=== PATIENT | female | born 1945 | race Caucasian/White ===

== ENCOUNTER 2024-06-29 10:00 | Emergency (ER) | payer MEDICARE, OTHER, SELFPAY ==
[2024-06-29 10:05] VITALS: BP 138/77; PULSE 76; RESP 13; TEMP 36.3; O2SAT 98
--- NOTE | 2024-06-29 10:15 | DI.CT_ITS ---
Exam(s) CT HEAD CERVICAL SPINE WO EXAM: CT HEAD CERVICAL SPINE WO CLINICAL HISTORY: Fall, R. sided head strike. TECHNIQUE: Imaging Protocol: Axial computed tomography images with coronal and sagittal reformatted images were created and reviewed COMPARISON: No exams were available for comparison FINDINGS: BRAIN: There are no skull fractures nor fluid in the visualized paranasal sinuses. There is no evidence of intracranial hemorrhage, mass effect, or shift of midline structures. There are no extra-axial fluid collections. The ventricles are not enlarged or shifted and there is no blo od within the ventricular system nor within the basal cisterns. CERVICAL SPINE: There is no evidence of acute fracture nor listhesis. No significant prevertebral soft tissue swelli ng. There is developmental fusion of both anterior and posterior osseous elements of C6,C7, and T1 verteb ral bodies. Also some fusion of partially visualized upper thoracic vertebrae. There is advanced disc space narrowing at the C 5-6 level and bilateral Luschka joint osteophytes at this level. There is also disc space narrowing at C3-4 level. There is some facet arthropathy. No facet malalignment evident. There is no significant facet joint malalignment. No significant osseous lesions evident. IMPRESSION: No acute intracranial findings on this noninfused CT scan of the brain. No evidence of cervical spine fracture, malalignment, nor acute compromise of the cervical spinal can al. 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 There is advanced disc space n arrowing of C5-6 level which is 1 level above the fusion. There is facet arthropathy but without андрей dence of facet joint malalignment. RADIATION DOSE DELIVERED: Total DLP DATA REPOSITORY: All CT scans at this facility are submitted to the National Radiology Data Registry (NRDR) Dose Index Registry (DIR) with the [employer] ([employer]). RADIATION OPTIMIZATION: All CT scans at this facility use at least one of these dose optimization te chniques: automated exposure control; mA and/or kV adjustment per patient size (includes targeted exa ms where dose is matched to clinical indication); or iterative reconstruction.
--- NOTE | 2024-06-29 10:26 | ED.GENADUL_ITS ---
Discharge Plan Disposition Patient Disposition: Home Condition: Stable Discharge Details Clinical Impression: Fracture of olecranon process, right, closed, Laceration of scalp Primary Care Provider: Unknown,Unknown ED Provider: Janelle Galicia Home Meds and New Rx's Prescriptions: No Action levetiracetam [Keppra] 500 mg tablet 500 mg PO BID metformin 1,000 mg tablet 1,000 mg PO BID venlafaxine [Effexor XR] 75 mg capsule,extended release 24hr 75 mg PO DAILY amlodipine 10 mg tablet 10 mg PO DAILY pravastatin 40 mg tablet 40 mg PO DAILY hydrochlorothiazide 25 mg tablet 25 mg PO DAILY lisinopril 20 mg tablet 20 mg PO DAILY omega 1-any-wwe-fish oil [Fish Oil] 1,200 (144-216) mg capsule 2 cap PO DAILY aspirin 81 mg capsule 81 mg PO DAILY omeprazole 10 mg capsule,delayed release(DR/EC) 20 mg PO DAILY mecobalamin (vitamin B12) 500 mcg tablet,chewable 500 mcg PO DAILY ml-zl-fldh-FA-Ca carb-vit K [Women's Multivitamin] 1 tab PO DAILY Calcium + D3 2 tab PO DAILY ibuprofen [Advil] 200 mg tablet 200 mg PO ONCE PRN Discharge Instructions Instructions: Laceration Repair With [facility], Elbow Fracture, Adult ED Additional Instructions: You were seen in the emergency department today after a fall. In our department a full physical examination performed, had 2 negro placed in a laceration on your scalp which need to be removed in 10 days. You also were found to have a chip fracture/avulsion fracture of your right elbow, which was wrapped in an Wing wrap and placed in a sling. Please take it easy with this arm, it is okay for you to use your hand and your wrist but do not excessively bend your elbow. You need to follow-up with orthopedics for reevaluation. Your negro can be removed at the emergency department or by your primary care provider. Please use Tylenol as needed for management of pain and thank you for allowing us to be part of your care. Referrals: Toribio Henry MD [ [facility] STAFF PHYSICIAN] - 1 week HPI General Mode of arrival: ambulatory . Date/Time Provider Initiated Documentation: 06/29/24 10:03 . Limitations to Documentation: no limitations . Information obtained by: patient and old records reviewed . HPI Narrative: HPI: This is a 78-year-old female patient without significant past medical history who is presenting for evaluation after a fall. The patient was walking, states that she stepped on some snow but there was ice underneath and she slipped and fell. She landed, striking her right side of her head against the bumper of her car, as well as her right elbow on the ground. She did not lose consciousness, and this event was not preceded by any dizziness, chest pain, or loss of consciousness. She was able to get up and ambulate after this event, presented to urgent care for evaluation and they recommended being seen here in the emergency department given the potential need for imaging. The patient reports that she noticed some bleeding from the side of her head, does not take anticoagulant medications. She states that her right elbow is slightly painful over the olecranon, though she is able to bend and extend her elbow. She did not sustain any additional injuries, and specifically denies neck or back pain, hip pain, and other injuries to the right shoulder, wrist, hand. Exam: Gen: Awake and alert, in no apparent distress HEENT: Non-icteric sclera, pupils equal and reactive bilaterally. The patient has a 1 cm laceration, well-approximated to the right temporal area with some surrounding tenderness. Neck: Supple, no midline spinal tenderness or step-offs Lungs: No apparent respiratory distress, normal respiratory effort. CV: Appears well perfused, strong distal pulses Abdomen: Non-distended, soft, nontender MSK: Moves 4 extremities without apparent limitation in ROM. Tenderness to pa lpation over the right olecranon process, no limitation in range of motion though extremes of flexion do reproduce pain. She has no tenderness, deformity, or other external signs of trauma with evaluation of her right clavicle, upper arm, wrist, or hand, and the remainder of her extremities are atraumatic. She has no T or L-spine tenderness, pelvis stable to AP compression. Skin: Visualized skin without rashes, cyanosis. Neuro: Normal Gait, no obvious focal deficits or facial asymmetry. Speaks in full, clear sentences. Psych: Appropriate for situation. MDM: This is a 78-year-old female patient presenting for evaluation after a fall. Reassuringly, this appears based on history to have been a mechanical fall, without preceding medical abnormalities such as syncope, orthostasis, seizure activity, stroke, or arrhythmia. My differentials include but are not limited to intracranial hemorrhage, skull fracture, contusion, laceration, fracture and dislocation of the affected right elbow, no evidence on my physical examination for neurovascular injury and she is reassuringly neurologically intact. We will perform wound care to better evaluate that laceration, and obtain a Noncon CT head and C-spine, as well as an x-ray of the affected right elbow. ED Course: CT head and neck without evidence of intracranial hemorrhage, skull fracture, or spinal fracture. The patient's scalp laceration was thoroughly washed out and was repaired with negro as noted below. The x-ray of the patient's elbow was independently interpreted by myself, and does show an avulsion or chip fracture of the olecranon process. The patient on reevaluation does have full preserved strength, symmetrical bilaterally, with elbow extension making triceps rupture less likely. I did discuss this patient's case with orthopedics, who recommend Wing wrap and sling, as well as follow-up in their clinic for reevaluation. She is right-hand dominant and we discussed use of her arm and wrist well avoiding excessive use of her elbow. I provided her with a dose of Tylenol for symptomatic management of pain. At this time, the patient has had a full medical evaluation and is safe for discharge to home. They are hemodynamically stable, ambulatory, and tolerating PO. They are understanding of the follow-up plan and return precautions. They left our facility without incident. Janelle Galicia MD Related Data Home Medications ?Medication ?Instructions ?Recorded ?Confirmed Calcium + D3 2 tab PO DAILY 06/29/24 06/29/24 amlodipine 10 mg tablet 10 mg PO DAILY 06/29/24 06/29/24 aspirin 81 mg capsule 81 mg PO DAILY 06/29/24 06/29/24 hydrochlorothiazide 25 mg tablet 25 mg PO DAILY 06/29/24 06/29/24 ibuprofen 200 mg tablet (Advil) 200 mg PO ONCE PRN 06/29/24 06/29/24 levetiracetam 500 mg tablet 500 mg PO BID 06/29/24 06/29/24 (Keppra) lisinopril 20 mg tablet 20 mg PO DAILY 06/29/24 06/29/24 mecobalamin (vitamin B12) 500 mcg 500 mcg PO DAILY 06/29/24 06/29/24 chewable tablet metformin 1,000 mg tablet 1,000 mg PO BID 06/29/24 06/29/24 vy-ns-rxuj-FA-Ca carb-vit K 1 tab PO DAILY 06/29/24 06/29/24 omega 3-riq-hde-fish oil 1,200 mg 2 cap PO DAILY 06/29/24 06/29/24 (144 mg-216 mg) capsule (Fish Oil) omeprazole 10 mg capsule,delayed 20 mg PO DAILY 06/29/24 06/29/24 release pravastatin 40 mg tablet 40 mg PO DAILY 06/29/24 06/29/24 venlafaxine 75 mg capsule,extended 75 mg PO DAILY 06/29/24 06/29/24 release 24 hr (Effexor XR) Allergies Allergy/AdvReac Type Severity Reaction Status Date / Time niacin Allergy Intermediate Hives Verified 06/29/24 10:12 phenytoin (From Dilantin) Allergy Intermediate Hives Verified 06/29/24 10:12 General Stated Complaint: Fall/Non TraumaCriteria RAIMUNDO: 3 Course Vital Signs Vital signs: Vital Signs Temperature 36.3 C L 06/29/24 10:05 Pulse 76 06/29/24 10:05 Respiratory Rate 13 06/29/24 10:05 Blood Pressure 138/77 06/29/24 10:05 Pulse Oximetry 98 06/29/24 10:05 Temperature 36.3 C L 06/29/24 10:05 Temperature Source Oral 06/29/24 10:05 Pulse 76 06/29/24 10:05 Respiratory Rate 13 06/29/24 10:05 Blood Pressure 138/77 06/29/24 10:05 Blood Pressure Position Sitting 06/29/24 10:05 Pulse Oximetry 98 06/29/24 10:05 Oxygen Delivery Method Room Air 06/29/24 10:05 Oxygen Flow Rate 0 06/29/24 10:05 Pain Level 8 06/29/24 10:05 Procedures Laceration Laceration 1: Site: scalp Side (If applicable): right Size (cm): 2 Description: flap Depth: simple, single layer Pre-repair: wound explored, irrigated extensively and deep structures intact Skin layer closed with: other (Negro, 2) Medical Decision Making Quality:SDOH Health Related Social Needs: No Data to Display PFSH All Active Problems (Updated 06/29/24 @ 12:25 by Janelle Galicia MD) Laceration of scalp (Acute) Fracture of olecranon process, right, closed (Acute) Social History Smoking/Tobacco Use Status: Never Smoking risk assessment performed?: Yes Alcohol Intake: never Drug use: Never Substance use type: does not use Do you feel safe at home: Yes Do you feel safe in your relationship?: Yes
--- NOTE | 2024-06-29 11:20 | DI.RAD_ITS ---
Exam(s) XR ELBOW RT COMPLETE EXAM: XR ELBOW RT COMPLETE CLINICAL HISTORY: Fall, pain. TECHNIQUE: 2D digital imaging was performed. COMPARISON: No exams were available for comparison FINDINGS: Four views There is a tiny osteophyte density adjacent to the posterior aspect of the olecranon fossa and overly ing soft tissue swelling in the olecranon bursa. This is probably a subtle avulsion fracture. No ot her fractures identified. No joint effusion seen. Radial head and neck appear intact. Epicondyles intact. IMPRESSION: Small avulsion chip fracture off the posterior olecranon and there is overlying soft tissue swelling in the olecranon bursa. DATA REPOSITORY: RADIATION DOSE DELIVERED:
[2024-06-29] MEDS: Acetaminophen 500 MG TAB 1000 MG PO (11:32)
[2024-06-29] MEDS: Diph,Pertuss(Acell),Tet Vac/Pf 0.5 ML SYR IM (11:33)
[2024-06-29 12:43] VITALS: BP 124/78; PULSE 88; RESP 16; TEMP 37.1; O2SAT 98
== END 2024-06-29 12:45 | disposition home or self-care (01) ==
PROVIDERS: Emergency Provider Emergency Medicine
DX: S52.021A Displaced fracture of olecranon process without intraarticular extension of right ulna, initial encounter for closed fracture (principal); S01.01XA Laceration without foreign body of scalp, initial encounter; M43.22 Fusion of spine, cervical region; Z23 Encounter for immunization; W00.0XXA Fall on same level due to ice and snow, initial encounter; Y93.01 Activity, walking, marching and hiking; Y92.89 Other specified places as the place of occurrence of the external cause
CPT/HCPCS: 90471; 90715; 99284; 70450; 72125; 73080

== ENCOUNTER 2024-07-17 15:48 | Outpatient (CLI) | payer MEDICARE, SELFPAY ==
--- NOTE | 2024-07-17 09:00 | DI.RAD_ITS ---
Exam(s) XR ELBOW RT COMPLETE EXAM: XR ELBOW RT COMPLETE h CLINICAL HISTORY: right olecranon process fracture. TECHNIQUE: 2D digital imaging was performed. COMPARISON: CR XR ELBOW RT COMPLETE from 06/29/2024 FINDINGS: 3 views Small fracture fragment on posterior aspect of the lack non fossa is unchanged. The amount of swelli ng in the olecranon bursa as somewhat decreased. No new fractures evident. IMPRESSION: As above. DATA REPOSITORY: RADIATION DOSE DELIVERED:
== END 2024-07-17 15:49 | disposition home or self-care (01) ==
LOC: DIORS 15:49
PROVIDERS: PCP Nurse Practitioner Family; Visit Provider Physician Assistant
DX: S52.021D Displaced fracture of olecranon process without intraarticular extension of right ulna, subsequent encounter for closed fracture with routine healing (principal); X58.XXXD Exposure to other specified factors, subsequent encounter
CPT/HCPCS: 99213; 73080